=== PATIENT | male | born 1975 | race Hispanic/Latino ===

== ENCOUNTER → 2017-10-26 | Day surgery (SDC) | payer BC ==
[~2017-10-26] MED LIST: ACETAMINOPHEN 1000 MG/100 ML 100 ML IV ONE; BUPIVACAINE 0.25%/EPI 30ML SDV INJ ONE; FENTANYL CITRATE/PF 100MCG/2 ML INJ ONE; MIDAZOLAM HCL 2 MG/2 ML VIAL ONE; MORPHINE SULFATE 5 MG/ML VIAL ONE
--- NOTE | 2017-10-26 11:01 | Operative Report ---
DATE OF PROCEDURE: October 26, 2017 PREOPERATIVE DIAGNOSIS: Biliary dyskinesia. POSTOPERATIVE DIAGNOSIS: Biliary dyskinesia. PROCEDURE PERFORMED: Laparoscopic cholecystectomy. ANESTHESIA: General. JEWEL INSERTER: CHARY Hoover ESTIMATED BLOOD LOSS: Minimal. DRAINS: None. COMPLICATIONS: None. INDICATIONS AND FINDINGS: A 42-year-old male who complains of right upper quadrant pain since September of this year. The pain is associated with any type of food. No diarrhea. No vomiting. Patient had no gallstones, but an ejection fraction of 25%. The patient preoperatively understood that there were no guarantees that the pain would go away, but he does have a diagnosis of biliary dyskinesia with an abnormal ejection fraction on HIDA scan, and clinical history consistent with biliary dyskinesia. DESCRIPTION OF PROCEDURE: With the patient lying on the operating table in the supine position and after administration of general anesthesia, he was prepped and draped for laparoscopic cholecystectomy. The procedure was begun by establishing a pneumoperitoneum in the umbilical site. A stab wound was made in that location and the saline drop test was done. A pneumoperitoneum was insufflated to 15 mm of pressure. Then the 10/11 trocar was placed in that location. We placed finally 2 lateral working ports in the right midclavicular line and right anterior axillary line. There was some adhesions of the omentum to the right gutter. We had to separate that part of the omentum that was stuck to the right upper quadrant and gutter area where we were going to place the right anterior axillary line trocar in order to expose the insertion site 360 degrees circumferentially. After this was done, we placed a final lateral working port, and then retracted the gallbladder cephalad using grasping forceps. The gallbladder was long and full with bile. We began the dissection high on the neck until we exposed the cystic duct. The junction with the common bile duct was seen 360 degrees circumferentially. Then the cystic duct was clipped distally three times, once proximally and the cystic artery was transected between titanium clips, also both on the anterior and posterior branch. We then removed the gallbladder from the liver bed using electrocautery dissection. Then removed it through the umbilical port site. Inspected the operative field and there was no bile leak. No apparent bowel injury. After we did that, we then released the pneumoperitoneum under direct vision with the camera, and closed the port sites using 0 Vicryl for the umbilical fascia, 3-0 Vicryl for the subcutaneous tissue in that location, as well as subxiphoid port. The skin of all the ports was closed using mynor. Then 0.25% Marcaine with epinephrine was given as a local block. The patient tolerated the procedure well. Was taken to the recovery room in stable condition. Job#: [id number]
== END | disposition home or self-care (01) ==
LOC: OR 07:20
PROVIDERS: ATTEND Surgery
DX: K81.1 Chronic cholecystitis (principal); Z68.35 Body mass index [BMI] 35.0-35.9, adult; Z87.891 Personal history of nicotine dependence
CPT/HCPCS: 47562; 88304; 93005; C1766; J2250; J2270